=== PATIENT | female | born 1965 | race Caucasian/White ===

== ENCOUNTER 2017-05-30 06:00 | Day surgery (SDC) | payer OTHER ==
[2017-05-30] MEDS ORDERED: LACTATED RINGERS 1,000 ML ONE (06:05)
[2017-05-30] MEDS ORDERED: PROPOFOL 200 MG/20 ML VIAL IV ONE (10:00)
--- NOTE | 2017-05-30 10:08 | OP ---
DATE OF PROCEDURE: 05/30/17 PREPROCEDURE DIAGNOSIS: 1. Average risk colorectal cancer screening. POSTPROCEDURE DIAGNOSIS: 1. Internal hemorrhoids. PROCEDURE: 1. Colonoscopy. SURGEON: Alek Robledo MD. SEDATION: Monitored anesthesia care. ESTIMATED BLOOD LOSS: 0 mL. PROCEDURE: Informed consent was obtained prior to sedation. The preprocedure cardiopulmonary assessment was satisfactory. The patient was brought to the Endoscopy Suite and placed in the left lateral decubitus position. The patient was then sedated by the anesthesia team. Digital rectal exam was normal. The tip of the Olympus colonoscope was inserted into the rectum and advanced under direct visualization to the cecum as identified by the presence of the appendiceal orifice and ileocecal valve. The terminal ileum was then intubated , which was normal in appearance. Upon reaching the cecum, the endoscope was slowly withdrawn from the patient with careful attention paid to the entire colonic mucosa for the identification of any flat or small polyps. There were no polyps seen in the entire colon. In the rectum, retroflexed view of the anal verge showed small, non-bleeding internal hemorrhoids. The endoscope was then withdrawn from the patient and the procedure terminated. RECOMMENDATION: 1. Discharge the patient home with escort. 2. Advance to regular diet. 3. Continue present medications. 4. Resume normal activities. 5. Repeat colonoscopy in 10 years for screening purposes. #[id number] [facility] CENTERMeena
[2017-05-30 12:55] VITALS: TEMP 97.4; O2SAT 100
[2017-05-30 12:56] VITALS: BP 118/77
== END 2017-05-30 10:55 | disposition home or self-care (01) ==
LOC: AMB 06:00
PROVIDERS: ATTEND Internal Medicine Gastroenterology
DX: Z12.11 Encounter for screening for malignant neoplasm of colon (principal); K64.8 Other hemorrhoids; K21.9 Gastro-esophageal reflux disease without esophagitis; Z83.71 Family history of colonic polyps; Z88.0 Allergy status to penicillin; Z88.2 Allergy status to sulfonamides; Z79.899 Other long term (current) drug therapy
CPT/HCPCS: 00810; 45378; J3490; J7120

== ENCOUNTER → 2017-10-25 | Outpatient (CLI) | payer OTHER ==
--- NOTE | 2017-10-25 12:07 | US ---
EXAM DESCRIPTION: Thyroid CLINICAL HISTORY: 52 years, Female, NONTOXIC GOITER, UNSPECIFIED COMPARISON: FINDINGS: Right lobe of thyroid 5.4 x 1.3 x 1.4 cm. Left lobe 3.8 x 1.1 x 9.1 cm. Isthmus 1.5 mm. Hyperechoic well-circumscribed nodule anterior upper left lobe 3.7 x 2.3 x 3.7 mm. No demonstrated shadowing, constipation with increased vascularity. IMPRESSION: Indeterminate but likely benign nodule upper left lobe. Remainder evaluation of thyroid gland unremarkable Electronically signed by: Jun Linn MD 10/25/2017 12:06 PM [employer]IST[employer]
== END | disposition home or self-care (01) ==
LOC: US 11:25
PROVIDERS: ATTEND Obstetrics & Gynecology
DX: E04.9 Nontoxic goiter, unspecified (principal)

== ENCOUNTER → 2018-05-03 | Outpatient (CLI) | payer OTHER | LOC: GMATM 18:37 | PROVIDERS: ATTEND Nurse Practitioner Family | DX: N39.0 Urinary tract infection, site not specified (principal) ==